=== PATIENT | female | born 1965 | race Caucasian/White ===

== ENCOUNTER 2017-09-05 16:30 | Outpatient (CLI) | payer BC | END 2017-09-05 16:31 | disposition home or self-care (01) | LOC: BICRAD 16:30 | PROVIDERS: ATTEND Chiropractor | DX: M25.522 Pain in left elbow (principal) ==

== ENCOUNTER 2020-03-25 09:32 | Outpatient (CLI) | payer BC, OTHER ==
[2020-03-26 13:54] LABS: SARS-CoV-2 MS2 Positive; SARS-CoV-2 N Gene Negative; SARS-CoV-2 S Gene Negative; SARS-CoV-2 by NAA Not Detected (NotDetected); SARS-CoV-2 orf1ab Negative
== END 2020-03-25 09:33 | disposition home or self-care (01) ==
LOC: LABBT 09:32
PROVIDERS: ATTEND Orthopaedic Surgery
DX: Z01.812 Encounter for preprocedural laboratory examination (principal); Z11.59 Encounter for screening for other viral diseases; S62.302A Unspecified fracture of third metacarpal bone, right hand, initial encounter for closed fracture
CPT/HCPCS: 87635; U0003

== ENCOUNTER 2020-03-27 06:06 | Day surgery (SDC) | payer BC ==
[2020-03-25 14:37] VITALS: BMI 30.4
[2020-03-27] MEDS ORDERED: Fentanyl 100 MCG/2 ML VIAL ONE (06:46)
[2020-03-27] MEDS ORDERED: HYDROmorphone 0.5 MG/0.5 ML SYRINGE ONE (07:22)
[2020-03-27] MEDS ORDERED: Midazolam HCl 2 mg/2 ml Vial ONE (07:28)
[2020-03-27] MEDS ORDERED: Bupivacaine PF 0.5% 30 ML VIAL ONE (07:59)
[2020-03-27] MEDS ORDERED: Meperidine HCl/PF 25 MG/ML VIAL ONE (08:53)
--- NOTE | 2020-03-27 09:11 | RAD ---
Exam:Exam: Intraoperative fluoroscopy HISTORY: ORIF right third digit COMPARISON: None FINDINGS: 2 fluoroscopic views demonstrate placement of 2 screws traversing the distal third metacarp al. Fracture lucency is identified. Exposure: 3.6 seconds, 0.11 mGy IMPRESSION: Intraoperative fluoroscopy as above
--- NOTE | 2020-03-27 10:49 | OP ---
DATE OF PROCEDURE: 03/27/2020 PREOPERATIVE DIAGNOSIS: Right long finger metacarpal neck fracture, displaced. POSTOPERATIVE DIAGNOSIS: Right long finger metacarpal neck fracture, displaced. PROCEDURE PERFORMED: Open reduction and internal fixation of right metacarpal neck. ANESTHESIA: General as well as 10 mL of 0.5% Marcaine local. IMPLANTS: Synthes 2.0 mm cortical screws x2. TOURNIQUET TIME: 39 minutes at 250 mmHg. COMPLICATIONS: None. DRAINS: None. SPECIMEN: None. OUTCOME: Near-anatomic alignment. INDICATIONS FOR PROCEDURE: The patient is a pleasant 54-year-old lady, status post fall sustaining a displaced right long finger metacarpal neck fracture with a long oblique fracture and shortening. After discussion with the patient including risks and benefits, we decided to proceed with open reduction and internal fixation to improve alignment and promote healing and return of function. Informed consent has been obtained. I believe all questions answered. DESCRIPTION OF PROCEDURE: The patient was brought to the operating room and a time-out performed followed by induction of general anesthesia. Next, a sterile prep and drape was performed of the right upper extremity. Next, a vertical incision was made overlying the dorsal aspect of the long finger distal metacarpal shaft after skin was sharply incised. Dissection was carried down bluntly exposing the extensor tendon. Moving to the ulnar side of the extensor tendon, blunt dissection was carried down such that the metacarpal neck fracture could be visualized. Next, the fracture hematoma was lavaged from the fracture gap and then the fracture was reduced and held in place with a bone tenaculum. Next, two 2.0 mm cortical screws were passed from ulnar to radial side of this fracture, getting excellent compression across the fracture and stability of the fracture. AP and lateral C-arm images were checked to show appropriate reduction of fracture as well as appropriate length of hardware. Once confirmed, the wound was then thoroughly irrigated. The sheath ulnarly was closed with 3-0 Vicryl. 3-0 Vicryl was also used subcutaneously and then 4-0 nylon in horizontal mattress fashion for the skin. Xeroform gauze, Webril, and ulnar gutter splint was applied to the hand. Tourniquet was let down at the completion of dressing and the patient transferred to recovery room in stable condition. There were no complications. The patient tolerated the procedure well. Job ID: [id number]
== END 2020-03-27 10:08 | disposition home or self-care (01) ==
LOC: SDC 06:06
PROVIDERS: ATTEND Orthopaedic Surgery
PROC: 0PSP04Z Reposition Right Metacarpal with Internal Fixation Device, Open Approach (ICD-10-PCS; principal; 2020-03-27)
DX: S62.332A Displaced fracture of neck of third metacarpal bone, right hand, initial encounter for closed fracture (principal); E20.9 Hypoparathyroidism, unspecified; Z79.1 Long term (current) use of non-steroidal anti-inflammatories (NSAID); Z79.52 Long term (current) use of systemic steroids; Z79.899 Other long term (current) drug therapy; Z88.2 Allergy status to sulfonamides; Z91.048 Other nonmedicinal substance allergy status; W19.XXXA Unspecified fall, initial encounter
CPT/HCPCS: 76000; C1713; J0690; J1170; J2175; J2250; J3010; S0020

== ENCOUNTER 2020-11-19 15:38 | Outpatient (CLI) | payer BC | END 2020-11-19 15:39 | disposition home or self-care (01) | LOC: BICULT 15:38 | PROVIDERS: ATTEND Obstetrics & Gynecology | DX: R22.2 Localized swelling, mass and lump, trunk (principal) | CPT/HCPCS: 76999 ==

== ENCOUNTER 2022-01-10 22:02 | Inpatient (IN) | payer BC ==
[2022-01-10] MEDS ORDERED: Ondansetron PF 4 MG/2 ML Vial ONE (22:22)
[2022-01-10] MEDS ORDERED: Cefepime 2 GM VIAL ONE (22:22)
[2022-01-10] MEDS ORDERED: Ketorolac Tromethamine 30 MG/ML VIAL ONE (22:28)
[2022-01-10] MEDS ORDERED: Morphine 2 MG/ML VIAL ONE (22:30)
[2022-01-10 22:35] LABS: #Eosinphils 0.1 thou/uL (0.0-0.7); #Lymphocytes 0.4 thou/uL (1.20-3.40); #Monocytes 0.6 thou/uL (0.11-0.59); #Neutrophils 9.6 thou/uL (1.40-6.50); %Basophils 0.1 % (0.0-1.0); %Monocytes 5.2 % (0.0-10.0); %Neutrophils 89.8 % (42.0-75.0); Hemoglobin 13.9 g/dL (12.0-16.0); Mean Corpuscular HGB CONC 34.6 g/dL (32.0-36.0); Mean Corpuscular Hemoglobin 31.7 pg (27.0-31.0); Mean Corpuscular Volume 91.6 fL (78.0-98.0); Mean Platelet Volume 6.9 fL (7.4-10.4); Platelet Count 141 thou/uL (130-400); RBC Distribution Width 12.4 % (11.5-14.5); White Blood Cell (WBC) Count 10.7 thou/uL (4.8-10.8)
[2022-01-10 22:58] LABS: ALT (SGPT) 16 U/L (8-55); AST (SGOT) 20 U/L (5-34); Albumin 4.2 g/dL (3.5-5.0); Alkaline Phosphatase 119 U/L (40-110); Anion Gap 16 mmol/L (10-20); BUN (Urea Nitrogen) 14 mg/dL (9.8-20.1); Bilirubin, Total 0.9 mg/dL (0.2-1.2); Calc. Creatinine Clearance 0 mL/min (70-130); Calcium 9.3 mg/dL (7.8-10.44); Carbon Dioxide 23 mmol/L (22-29); Chloride 100 mmol/L (98-107); Globulin 3.4 g/dL (2.4-3.5); Glucose 124 mg/dL (70-105); Potassium 3.8 mmol/L (3.5-5.1); Protein, Total 7.6 g/dL (6.0-8.3); Sodium 135 mmol/L (136-145)
[2022-01-10 23:39] LABS: Bacteria/HPF 1+ HPF (None Seen); Bilirubin Negative (Negative); Blood, Urine Trace (Negative); Clarity Clear (Clear); Glucose, Urine (Dipstick) Normal (Negative); Ketone, Urine Negative (Negative); Leukocyte 75 Leu/uL (Negative); Nitrite Negative (Negative); Protein, Urine (Dipstick) Negative (Neg-Trace); RBC/HPF 0-3 HPF (0-3); Specific Gravity, Urine 1.006 (1.002-1.036); Squamous Epithelial 0-3 HPF (0-3); Urobilinogen Normal mg/dL (Less than 2); pH, Urine 6.5 (5.0-9.0)
[2022-01-10] MEDS ORDERED: Vancomycin 1 GM/200 ML BAG ONE (23:54)
[2022-01-11] MEDS ORDERED: Ketorolac Tromethamine 30 MG/ML VIAL ONE (00:03)
[2022-01-11 01:56] VITALS: BMI 32.8
[2022-01-11] MEDS ORDERED: Loratadine 10 MG TAB PO PRN (08:15)
[2022-01-11] MEDS ORDERED: Diazepam 5 MG TAB PO PRN (08:15)
[2022-01-11] MEDS ORDERED: Atenolol 50 MG TAB PO SCH (09:00)
[2022-01-11] MEDS: Enoxaparin Sodium 40 MG/0.4 ML SYRINGE SC SCH (09:17)
[2022-01-11] MEDS: Famotidine 20 MG TAB PO SCH ×2 (09:17→21:04)
[2022-01-11] MEDS: HYDROcodone/Acetaminophen 5/325 mg Tablet PO PRN (09:17)
[2022-01-11] MEDS: Ondansetron ODT 4 MG TAB PO PRN ×2 (09:17→22:48)
[2022-01-11] MEDS: Losartan 25 MG TAB PO SCH (09:20)
[2022-01-11] MEDS: Thyroid 60 MG TAB PO SCH (09:20)
[2022-01-11] MEDS ORDERED: Saccharomyces boulardii 250 MG CAP PO SCH ×2 (09:52→10:15)
[2022-01-11 11:44] LABS: SARS-CoV-2 PCR by NAA Not Detected (NotDetected)
[2022-01-11] MEDS ORDERED: CEFAZOLIN 1 GM in Sodium Chloride 0.9% 100 ML IVPB SCH (14:00)
[2022-01-11] MEDS: Atenolol 50 MG TAB PO SCH (21:03)
[2022-01-12] MEDS: HYDROcodone/Acetaminophen 5/325 mg Tablet PO PRN ×2 (04:09→20:38)
[2022-01-12] MEDS: Ondansetron ODT 4 MG TAB PO PRN (04:10)
[2022-01-12 07:22] LABS: Anion Gap 11 mmol/L (10-20); BUN (Urea Nitrogen) 8 mg/dL (9.8-20.1); Calc. Creatinine Clearance 118 mL/min (70-130); Carbon Dioxide 24 mmol/L (22-29); Chloride 105 mmol/L (98-107); Glucose 108 mg/dL (70-105); Potassium 3.7 mmol/L (3.5-5.1); Sodium 136 mmol/L (136-145)
[2022-01-12 07:40] LABS: #Eosinphils 0.1 thou/uL (0.0-0.7); #Lymphocytes 0.9 thou/uL (1.20-3.40); #Monocytes 1.5 thou/uL (0.11-0.59); %Basophils 0.1 % (0.0-1.0); %Eosinophils 0.7 % (0.0-10.0); %Lymphocytes 6.3 % (21.0-51.0); %Monocytes 10.3 % (0.0-10.0); %Neutrophils 82.6 % (42.0-75.0); Band 5 % (5-11); Hemoglobin 12.5 g/dL (12.0-16.0); Lymphocytes 7 % (21-51); MDiff Complete? YES; Mean Corpuscular HGB CONC 32.8 g/dL (32.0-36.0); Mean Corpuscular Hemoglobin 31.3 pg (27.0-31.0); Mean Corpuscular Volume 95.4 fL (78.0-98.0); Mean Platelet Volume 7.1 fL (7.4-10.4); Monocytes 4 % (0-10); Neutrophil 84 % (42-75); Platelet Count 108 thou/uL (130-400); Platelet Morphology Comment Appears Decreased; Polychromasia SLIGHT = 2-3 cells (100X) (0-2/hpf); RBC Distribution Width 12.6 % (11.5-14.5); Red Blood Cell (RBC) Count 3.99 mill/uL (4.20-5.40); White Blood Cell (WBC) Count 14.5 thou/uL (4.8-10.8)
[2022-01-12] MEDS: Thyroid 60 MG TAB PO SCH (09:29)
[2022-01-12] MEDS: Saccharomyces boulardii 250 MG CAP PO SCH (09:30)
[2022-01-12] MEDS: Enoxaparin Sodium 40 MG/0.4 ML SYRINGE SC SCH ×2 (09:30→10:01)
[2022-01-12] MEDS: Famotidine 20 MG TAB PO SCH ×2 (09:31→20:39)
[2022-01-12] MEDS: Losartan 25 MG TAB PO SCH (09:35)
[2022-01-12] MEDS: Atenolol 50 MG TAB PO SCH (20:37)
[2022-01-12] MEDS: Acetaminophen 325 MG TAB PO PRN (21:32)
[2022-01-13 06:22] LABS: #Eosinphils 0.2 thou/uL (0.0-0.7); #Lymphocytes 0.8 thou/uL (1.20-3.40); #Monocytes 0.8 thou/uL (0.11-0.59); #Neutrophils 8.1 thou/uL (1.40-6.50); %Basophils 0.1 % (0.0-1.0); %Eosinophils 2.3 % (0.0-10.0); %Lymphocytes 8.3 % (21.0-51.0); %Monocytes 7.9 % (0.0-10.0); %Neutrophils 81.4 % (42.0-75.0); Hemoglobin 12.9 g/dL (12.0-16.0); Mean Corpuscular HGB CONC 33.7 g/dL (32.0-36.0); Mean Corpuscular Hemoglobin 31.7 pg (27.0-31.0); Mean Corpuscular Volume 94.2 fL (78.0-98.0); Mean Platelet Volume 7.1 fL (7.4-10.4); Platelet Count 132 thou/uL (130-400); RBC Distribution Width 12.5 % (11.5-14.5); Red Blood Cell (RBC) Count 4.09 mill/uL (4.20-5.40)
[2022-01-13 06:36] LABS: Anion Gap 14 mmol/L (10-20); BUN (Urea Nitrogen) 9 mg/dL (9.8-20.1); Calc. Creatinine Clearance 128 mL/min (70-130); Calcium 9.2 mg/dL (7.8-10.44); Carbon Dioxide 24 mmol/L (22-29); Chloride 105 mmol/L (98-107); Glucose 94 mg/dL (70-105); Potassium 3.9 mmol/L (3.5-5.1); Sodium 139 mmol/L (136-145)
[2022-01-13] MEDS: Enoxaparin Sodium 40 MG/0.4 ML SYRINGE SC SCH (08:48)
[2022-01-13] MEDS: Losartan 25 MG TAB PO SCH (08:49)
[2022-01-13] MEDS: Thyroid 60 MG TAB PO SCH (08:49)
[2022-01-13] MEDS: Famotidine 20 MG TAB PO SCH (08:51)
[2022-01-13] MEDS: Acetaminophen 325 MG TAB PO PRN (08:51)
[2022-01-13] MEDS: Saccharomyces boulardii 250 MG CAP PO SCH (08:51)
[2022-01-13 18:07] VITALS: BP 148/82; TEMP 99.1
== END 2022-01-13 18:05 | disposition home or self-care (01) | DRG 862 ==
LOC: ERS 22:02 → T4-B 01-11 00:30 → OBSVTOIN 01-12 13:35
PROVIDERS: ADMIT Internal Medicine; ATTEND Internal Medicine
PROC: 0H9T30Z Drainage of Right Breast with Drainage Device, Percutaneous Approach (ICD-10-PCS; principal; 2022-01-13)
DX: T81.49XA Infection following a procedure, other surgical site, initial encounter (principal); A41.9 Sepsis, unspecified organism; N39.0 Urinary tract infection, site not specified; N61.1 Abscess of the breast and nipple; I10 Essential (primary) hypertension; Y83.8 Other surgical procedures as the cause of abnormal reaction of the patient, or of later complication, without mention of misadventure at the time of the procedure; E03.9 Hypothyroidism, unspecified; Z88.2 Allergy status to sulfonamides; Z88.8 Allergy status to other drugs, medicaments and biological substances; Z79.899 Other long term (current) drug therapy; Z85.3 Personal history of malignant neoplasm of breast; Z90.11 Acquired absence of right breast and nipple
CPT/HCPCS: 36415; 71045; 74176; 80048; 80053; 81003; 81015; 83605; 85025; 87040; 87070; 87086; 87205; 87804; 93005; 96365; 96367; 96375; J0692; J1650; J1885; J1956; J2270; J2405; J3370; Q0162; U0003; U0005

== ENCOUNTER 2022-03-02 10:31 | Day surgery (SDC) | payer BC ==
[2022-02-24 12:43] VITALS: BMI 30.2
[2022-03-02 12:05] LABS: #Eosinphils 0.1 thou/uL (0.0-0.7); #Lymphocytes 1.3 thou/uL (1.20-3.40); #Monocytes 0.6 thou/uL (0.11-0.59); #Neutrophils 4.4 thou/uL (1.40-6.50); %Basophils 0.2 % (0.0-1.0); %Eosinophils 1.9 % (0.0-10.0); %Lymphocytes 19.9 % (21.0-51.0); %Monocytes 9.1 % (0.0-10.0); %Neutrophils 68.9 % (42.0-75.0); Hemoglobin 13.9 g/dL (12.0-16.0); Mean Corpuscular HGB CONC 33.5 g/dL (32.0-36.0); Mean Corpuscular Hemoglobin 31.4 pg (27.0-31.0); Mean Corpuscular Volume 93.8 fL (78.0-98.0); Mean Platelet Volume 7.4 fL (7.4-10.4); Platelet Count 192 thou/uL (130-400); RBC Distribution Width 12.4 % (11.5-14.5); Red Blood Cell (RBC) Count 4.42 mill/uL (4.20-5.40); White Blood Cell (WBC) Count 6.4 thou/uL (4.8-10.8)
[2022-03-02 12:21] LABS: ALT (SGPT) 23 U/L (8-55); AST (SGOT) 24 U/L (5-34); Albumin 4.4 g/dL (3.5-5.0); Alkaline Phosphatase 100 U/L (40-110); Anion Gap 14 mmol/L (10-20); BUN (Urea Nitrogen) 12 mg/dL (9.8-20.1); Bilirubin, Total 1.2 mg/dL (0.2-1.2); Calc. Creatinine Clearance 113 mL/min (70-130); Carbon Dioxide 25 mmol/L (22-29); Chloride 107 mmol/L (98-107); Estimated GFR 89; Globulin 3.1 g/dL (2.4-3.5); Glucose 105 mg/dL (70-105); Potassium 4.1 mmol/L (3.5-5.1); Protein, Total 7.5 g/dL (6.0-8.3); Sodium 142 mmol/L (136-145)
[2022-03-02] MEDS ORDERED: Famotidine/PF 20 mg/2ml Vial ONE (12:38)
[2022-03-02] MEDS ORDERED: fentaNYL Citrate/PF 100 MCG/2 ML SYRINGE ONE (12:38)
[2022-03-02] MEDS ORDERED: Midazolam HCl 2 mg/2 ml Vial ONE (12:38)
[2022-03-02] MEDS ORDERED: PROPOFOL 200 MG/20 ML VIAL ONE (13:00)
[2022-03-02] MEDS ORDERED: ePHEDrine 50 MG/ML VIAL ONE (13:00)
[2022-03-02] MEDS ORDERED: Ondansetron PF 4 MG/2 ML Vial ONE (13:00)
[2022-03-02] MEDS ORDERED: Dexamethasone 20 MG/5 ML VIAL ONE (13:00)
[2022-03-02] MEDS ORDERED: Lidocaine 1% PF 5 ML VIAL ONE (13:00)
[2022-03-02] MEDS ORDERED: Levofloxacin 500 mg/D5W 100 ml Premix Bag ONE (13:13)
[2022-03-02] MEDS ORDERED: Lidocaine 1% w/Epinephrine 1:100K 20 ML VIAL ONE (13:16)
[2022-03-02] MEDS ORDERED: Bupivacaine 0.25% HCL 30 ML VIAL ONE (13:16)
[2022-03-02] MEDS ORDERED: Promethazine HCl 25 MG/ML VIAL ONE (14:01)
== END 2022-03-02 15:15 | disposition home or self-care (01) ==
LOC: SDC 10:31
PROVIDERS: ATTEND Surgery
PROC: 0H9U0ZZ Drainage of Left Breast, Open Approach (ICD-10-PCS; principal; 2022-03-02)
DX: N61.0 Mastitis without abscess (principal); N64.89 Other specified disorders of breast; N32.81 Overactive bladder; Z79.890 Hormone replacement therapy; Z79.899 Other long term (current) drug therapy; Z88.2 Allergy status to sulfonamides; Z91.048 Other nonmedicinal substance allergy status
CPT/HCPCS: 80053; 85025; 97139; J1100; J1956; J2250; J2405; J2550; J2704; J3490; S0020; S0028

== ENCOUNTER 2022-05-05 12:41 | Outpatient (CLI) | payer BC | END 2022-05-05 12:42 | disposition home or self-care (01) | LOC: ULT 12:41 | PROVIDERS: ATTEND Preventive Medicine Undersea and Hyperbaric Medicine | DX: T81.89XA Other complications of procedures, not elsewhere classified, initial encounter (principal); I08.1 Rheumatic disorders of both mitral and tricuspid valves | CPT/HCPCS: 93306 ==